=== PATIENT | male | born 1975 | race Two or more races ===

== ENCOUNTER 2020-01-23 11:04 | Outpatient (CLI) | payer OTHER ==
[~2020-01-23] VITALS: Ht 167.6 cm; Wt 89.4 kg
== END 2020-01-23 12:00 | disposition home or self-care (01) ==
LOC: OFIC 805 11:04
PROVIDERS: ATTEND Otolaryngology Otology & Neurotology
DX: H81.11 Benign paroxysmal vertigo, right ear (principal); H61.23 Impacted cerumen, bilateral

== ENCOUNTER 2020-02-20 08:57 | Outpatient (CLI) | payer OTHER | END 2020-02-20 09:30 | disposition home or self-care (01) | LOC: OFIC 805 08:57 | PROVIDERS: ATTEND Otolaryngology Otology & Neurotology | DX: H81.11 Benign paroxysmal vertigo, right ear (principal) ==